=== PATIENT | female | born 1965 | race Caucasian/White ===

== ENCOUNTER 2019-01-12 22:54 | Emergency (ER) | payer OTHER ==
[~2019-01-12] VITALS: Ht 160 cm; Wt 125.2 kg
[~2019-01-12 22:54] MED LIST: ACCUNEB SO1.25 MG/1 INH; BIAXIN 500 MG500 M2 PO; CEFDINIR300 MG PO; LEVALBUTER1.25 MG/0. INH; PREDNISONE50 MG PO
[2019-01-12] MEDS ORDERED: FLOVENT HFA 4444 MCG INH (23:07)
[2019-01-12] MEDS ORDERED: ADVIL200 M3 PO (23:08)
[2019-01-12] MEDS ORDERED: GAS RELIEF80 MG PER TUBE (23:09)
[2019-01-12 23:37] LABS: ABSOLUTE BASOPHILS 0.1 thou/uL (0.0-0.2); ABSOLUTE EOSINOPHILS 0.4 thou/uL (0.0-0.7); ABSOLUTE LYMPHOCYTES 2.5 thou/uL (0.8-5.3); ABSOLUTE MONOCYTES 0.9 thou/uL (0.0-1.2); BASOPHILS 1.1 %; EOSINOPHILS 3.9 %; HEMATOCRIT 38.7 % (37.0-47.0); HEMOGLOBIN 12.9 gm/dL (12.0-15.0); LYMPHOCYTES 24.9 %; MCH 30.2 pg (26.0-34.0); MCHC 33.4 g/dL (28.0-37.0); MCV 90.4 fL (80.0-100.0); MONOCYTES 8.9 %; MPV 7.5 fl. (7.2-11.1); NUCLEATED RBCS 0 /100WBC; PLATELET COUNT* 376 thou/uL (150-400); POLYS 61.2 %; RBC 4.28 mil/uL (4.20-5.00); RDW-CV 13.2 % (10.5-14.5); WBC 9.9 thou/uL (4.0-11.0)
[2019-01-12 23:44] LABS: CALCIUM 8.9 mg/dL (8.5-10.1); CREATININE 0.8 mg/dL (0.6-1.3)
[2019-01-12 23:48] LABS: ALBUMIN 3.7 g/dL (3.4-5.0); TOTAL BILIRUBIN 0.4 mg/dL (<0.1-1.0); TOTAL PROTEIN 8.2 g/dL (6.4-8.2)
[2019-01-13 00:25] LABS: URINE BILIRUBIN NEGATIVE (Negative); URINE BLOOD 1+ (Negative); URINE CLARITY CLEAR; URINE COLOR YELLOW; URINE GLUCOSE-RANDOM NEGATIVE (Negative); URINE KETONES NEGATIVE (Negative); URINE LEUKOCYTES NEGATIVE (Negative); URINE NITRITE NEGATIVE (Negative); URINE PROTEIN NEGATIVE (Negative); URINE SPECIFIC GRAVITY <= 1.005 (1.005-1.030); URINE UROBILINOGEN 0.2 E.U./dl (0.2-1.0)
[2019-01-13 00:36] LABS: CASTS None Seen /LPF (None Seen); CRYSTALS None Seen /LPF (None Seen); MUCUS 4-6 Moderate strn/LPF (None Seen); SQUAMOUS 4-10 Moderate /LPF (0-3); URINE RBC 3-10 Few /HPF (0-2); URINE WBC None Seen /HPF (0-5)
[2019-01-13] MEDS ORDERED: FLAGYL500 M1 PO (00:48)
[2019-01-13] MEDS ORDERED: CIPRO500 MG PO (00:48)
[2019-01-13 01:24] VITALS: BP 132/79
== END 2019-01-13 01:24 | disposition home or self-care (01) ==
LOC: M.ERS 22:54
PROVIDERS: Nurse Practitioner Family
DX: K57.32 Diverticulitis of large intestine without perforation or abscess without bleeding (principal); I10 Essential (primary) hypertension; J45.909 Unspecified asthma, uncomplicated; Z88.0 Allergy status to penicillin; Z88.1 Allergy status to other antibiotic agents

== ENCOUNTER 2019-04-25 04:02 | Emergency (ER) | payer OTHER ==
[~2019-04-25] VITALS: Ht 160 cm; Wt 117.9 kg
[~2019-04-25 04:02] MED LIST changes: +ADVIL200 M3 PO; +CIPRO500 MG PO; +FLAGYL500 M1 PO; +FLOVENT HFA 4444 MCG INH; +GAS RELIEF80 MG PER TUBE
[2019-04-25 04:49] LABS: ABSOLUTE BASOPHILS 0.1 thou/uL (0.0-0.2); ABSOLUTE EOSINOPHILS 0.4 thou/uL (0.0-0.7); ABSOLUTE LYMPHOCYTES 2.3 thou/uL (0.8-5.3); ABSOLUTE MONOCYTES 0.6 thou/uL (0.0-1.2); ABSOLUTE NEUTROPHILS 4.1 thou/uL (1.6-8.1); BASOPHILS 1.3 %; EOSINOPHILS 5.3 %; HEMATOCRIT 39.4 % (37.0-47.0); LYMPHOCYTES 30.5 %; MCH 30.6 pg (26.0-34.0); MCHC 33.1 g/dL (28.0-37.0); MCV 92.3 fL (80.0-100.0); MONOCYTES 8.1 %; MPV 7.6 fl. (7.2-11.1); NUCLEATED RBCS 0 /100WBC; PLATELET COUNT* 310 thou/uL (150-400); POLYS 54.8 %; RBC 4.27 mil/uL (4.20-5.00); WBC 7.6 thou/uL (4.0-11.0)
[2019-04-25 05:05] LABS: PROTIME 10.4 Seconds (9.20-11.50)
[2019-04-25 05:18] LABS: ANION GAP 8 mmol/L (7-16); BUN 15 mg/dL (7-18); CALCIUM 8.2 mg/dL (8.5-10.1); CHLORIDE 103 mmol/L (98-107); CO2 28 mmol/L (21-32); CREATININE 0.7 mg/dL (0.6-1.3); GLUCOSE 123 mg/dL (70-99); POTASSIUM 3.7 mmol/L (3.5-5.1); SODIUM 139 mmol/L (136-145)
[2019-04-25 05:30] LABS: ALBUMIN 3.6 g/dL (3.4-5.0); ALKALINE PHOSPHATASE 116 U/L (46-116); NT-PRO BRAIN NAT PEPTIDE 46 pg/mL (<300); SGOT 18 U/L (15-37); SGPT 39 U/L (30-65); TOTAL BILIRUBIN 0.2 mg/dL (<0.1-1.0); TOTAL PROTEIN 7.3 g/dL (6.4-8.2); TROPONIN-I LEVEL <0.06 ng/mL (<0.06)
[2019-04-25 07:44] VITALS: BP 124/77
--- NOTE | 2019-04-25 08:47 | EKG ---
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 : 1965 Requested By: Eliana Stallings Order Number: [id number] MD: Kyle Garzon Measurements Intervals [place] Rate: 90 P: 48 IA: 143 QRS: 71 QRSD: 96 T: 6 QT: 376 QTc: 460 Interpretive Statements Sinus rhythm Minimal ST depression, inferior leads Baseline wander in lead(s) V6 Compared to ECG 01/20/2016 11:11:47 no change Electronically Signed On 04-25-2019 8:46:53 CDT by Kyle Garzon [email or web address] <ELECTRONICALLY SIGNED> By: Kyle Garzon MD, [facility] 04/25/19 0846 [id number] Kyle Garzon MD, [facility] /EPI
== END 2019-04-25 07:50 | disposition home or self-care (01) ==
LOC: M.ERS 04:02
PROVIDERS: Emergency Medicine
DX: M79.602 Pain in left arm (principal); J45.909 Unspecified asthma, uncomplicated; I10 Essential (primary) hypertension; Z88.0 Allergy status to penicillin

== ENCOUNTER 2020-08-20 09:39 | Emergency (ER) | payer OTHER ==
[~2020-08-20] VITALS: Ht 160 cm; Wt 136.1 kg
[2020-08-20] MEDS ORDERED: ZPAK PO (10:03)
[2020-08-20] MEDS ORDERED: PREDNISONE 10 M10 M1 PO (10:04)
[2020-08-20] MEDS ORDERED: SINGULAIR 10 MG10 MG PO (10:05)
[2020-08-20] MEDS ORDERED: ZINC SULFATE220 MG PO (10:06)
[2020-08-20] MEDS ORDERED: DOXYCYCLINE 10100 MG PO (10:06)
[2020-08-20 10:34] LABS: ABSOLUTE BASOPHILS 0.2 thou/uL (0.0-0.2); ABSOLUTE EOSINOPHILS 0.1 thou/uL (0.0-0.7); ABSOLUTE LYMPHOCYTES 3.1 thou/uL (0.8-5.3); BASOPHILS 1.1 %; EOSINOPHILS 0.8 %; HEMATOCRIT 42.5 % (37.0-47.0); HEMOGLOBIN 13.9 gm/dL (12.0-15.0); LYMPHOCYTES 21.6 %; MCHC 32.8 g/dL (28.0-37.0); MCV 91.3 fL (80.0-100.0); MONOCYTES 6.8 %; MPV 7.4 fl. (7.2-11.1); NUCLEATED RBCS 0 /100WBC; PLATELET COUNT* 352 thou/uL (150-400); POLYS 69.7 %; RBC 4.66 mil/uL (4.20-5.00); RDW-CV 13.2 % (10.5-14.5); WBC 14.4 thou/uL (4.0-11.0)
[2020-08-20 10:46] LABS: CALCIUM 9.4 mg/dL (8.5-10.1); CREATININE 0.6 mg/dL (0.6-1.3)
[2020-08-20 10:50] LABS: INFLUENZA A ANTIGEN Negative (Negative); INFLUENZA B ANTIGEN Negative (Negative)
[2020-08-20 10:56] LABS: ALBUMIN 3.9 g/dL (3.4-5.0); TOTAL BILIRUBIN 0.5 mg/dL (<0.1-1.0); TOTAL PROTEIN 8.2 g/dL (6.4-8.2)
[2020-08-20] MEDS ORDERED: FLEXERIL PO (12:41)
[2020-08-20] MEDS ORDERED: PREDNISONE50 MG PO (12:41)
[2020-08-20 12:56] VITALS: BP 161/99
--- NOTE | 2020-08-20 15:51 | EKG ---
[place] [address] ELECTROCARDIOGRAM REPORT Name: KATHYZACKARYBERTO Briscoe Room: 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
== END 2020-08-20 13:03 | disposition home or self-care (01) ==
LOC: M.ERS 09:39
PROVIDERS: Emergency Medicine Emergency Medical Services; Nurse Practitioner Family
DX: R09.1 Pleurisy (principal); Z20.828 Contact with and (suspected) exposure to other viral communicable diseases; I10 Essential (primary) hypertension; J45.909 Unspecified asthma, uncomplicated; Z88.0 Allergy status to penicillin

== ENCOUNTER → 2020-09-13 | Outpatient (CLI) | payer OTHER ==
[~2020-09-13] MED LIST changes: +DOXYCYCLINE 10100 MG PO; +FLEXERIL PO; +PREDNISONE 10 M10 M1 PO; +SINGULAIR 10 MG10 MG PO; +ZINC SULFATE220 MG PO; +ZPAK PO
== END ==
LOC: M.CT 12:44
PROVIDERS: ATTEND Family Medicine
DX: R06.02 Shortness of breath (principal); R93.89 Abnormal findings on diagnostic imaging of other specified body structures